=== PATIENT | female | born 1965 | race Caucasian/White ===

== ENCOUNTER 2023-06-19 15:41 | Emergency (ER) | payer OTHER ==
[~2023-06-19] VITALS: Ht 165.1 cm; Wt 117.9 kg
[2023-06-19 15:48] VITALS: BP 183/122
[2023-06-19] MEDS ORDERED: FURO80 PO (16:14)
[2023-06-19] MEDS ORDERED: MINO2.5 PO (16:14)
[2023-06-19] MEDS ORDERED: DIPATR PO (16:14)
[2023-06-19] MEDS ORDERED: CATAPRES0.1 MG PO (16:14)
[2023-06-19] MEDS ORDERED: Omeprazole20 M1 PO (16:14)
[2023-06-19] MEDS ORDERED: NIFE60ER PO (16:14)
[2023-06-19] MEDS ORDERED: ZESTRIL40 M1 PO (16:14)
[2023-06-19] MEDS ORDERED: AMLO10 PO (16:14)
[2023-06-19] MEDS ORDERED: TIZA4 PO (16:14)
[2023-06-19] MEDS ORDERED: CARVEDILOL ER80 MG PO (16:14)
[2023-06-19] MEDS ORDERED: Cardura1 MG PO (16:14)
[2023-06-19] MEDS ORDERED: LEVALBUTEROL TA15 G1 INH (16:14)
== END 2023-06-19 16:35 | disposition home or self-care (01) ==
LOC: ER 15:41
DX: Z76.0 Encounter for issue of repeat prescription (principal); Z79.899 Other long term (current) drug therapy
CPT/HCPCS: 99281